=== PATIENT | female | born 1990 | race Two or more races ===

== ENCOUNTER 2021-12-01 11:29 | Emergency (ER) | payer MEDICAID, OTHER ==
[~2021-12-01] VITALS: Ht 160 cm; Wt 79.4 kg
[2021-12-01 12:05] VITALS: BP 129/79
[2021-12-01] MEDS ORDERED: IBUP800T27 PO (12:29)
== END 2021-12-01 12:40 | disposition home or self-care (01) ==
LOC: ER 11:29
DX: S93.402A Sprain of unspecified ligament of left ankle, initial encounter (principal); F17.210 Nicotine dependence, cigarettes, uncomplicated; Z98.51 Tubal ligation status; Z91.040 Latex allergy status; X50.1XXA Overexertion from prolonged static or awkward postures, initial encounter; Y93.89 Activity, other specified; Y92.89 Other specified places as the place of occurrence of the external cause; Y99.8 Other external cause status
CPT/HCPCS: 73610